=== PATIENT | male | born 1955 | race Caucasian/White ===

== ENCOUNTER 2022-03-18 11:06 | Outpatient (CLI) | payer MEDICARE, BC, SELFPAY ==
--- NOTE | 2022-03-18 09:30 | DI.RAD_ITS ---
Exam(s) XR SHOULDER RT COMPLETE 2+V EXAM: XR SHOULDER RT COMPLETE 2+V CLINICAL HISTORY: right shoulder pain. TECHNIQUE: 2D digital imaging was performed. Five views. COMPARISON: No exams were available for comparison FINDINGS: BONES: No acute fracture is present. No bony destructive lesion is seen. JOINTS: No dislocation present. Spurring at AC joint and inferior glenohumeral joint. Glenohumeral joint space is maintained. SOFT TISSUE: Normal. IMPRESSION: Mild to moderate degenerative changes of the AC joint and glenohumeral joint. DATA REPOSITORY: RADIATION DOSE DELIVERED:
== END 2022-03-18 11:07 | disposition home or self-care (01) ==
LOC: DIORS 11:07
PROVIDERS: Visit Provider Student in an Organized Health Care Education/Training Program
DX: M75.101 Unspecified rotator cuff tear or rupture of right shoulder, not specified as traumatic (principal)
CPT/HCPCS: 99203; 73030

== ENCOUNTER 2022-04-15 01:27 | Outpatient (CLI) | payer MEDICARE, BC, SELFPAY ==
--- NOTE | 2022-04-15 08:00 | DI.MRI_ITS ---
Exam(s) MR UPPER JOINT RT WO EXAM: MR UPPER JOINT RT WO CLINICAL HISTORY: R SHOULDER PAIN,RT ROTATOR CUFF TEAR,M75.101. TECHNIQUE: Multiplanar multisequence MRI was performed. COMPARISON: CR XR SHOULDER RT COMPLETE 2+V from 03/18/2022 FINDINGS: The examination is limited due to patient motion artifact. BONES: There is no fracture or contusion pattern. JOINTS: Moderate degenerative changes are seen at the acromioclavicular joint. There are degenerativ e changes seen at the glenohumeral joint. TENDONS: Supraspinatus: There is tendinosis of the supraspinatus tendon. No evidence of a tear. Infraspinatus: There is tendinosis of the infraspinatus tendon. No evidence of a tear. Subscapularis: There is tendinosis of the subscapularis tendon. There is some hyperintense signal se en at the inferior aspect of the tendon suspicious for partial tear. Teres Minor: Unremarkable. Biceps and [place]: Unremarkable. MUSCLES: There is mild fatty atrophy of the teres minor muscle. The muscles otherwise show normal si gnal and size. GLENOID LABRUM: Unremarkable on this noncontrast examination. SOFT TISSUES: Unremarkable. LIGAMENTS: Unremarkable. OTHER: Subacromial and subdeltoid bursae are unremarkable. IMPRESSION: 1. Subscapularis tendinosis. There is hyperintense signal seen in the inferior aspect of the tendon suspicious for partial tear. 2. Infraspinatus and supraspinatus tendinosis. 3. Mild fatty atrophy of the teres minor muscles. No evidence of a soft tissue mass. 4. Degenerative changes of the acromioclavicular and glenohumeral joints. DATA REPOSITORY:
== END 2022-04-15 01:47 ==
PROVIDERS: Visit Provider Student in an Organized Health Care Education/Training Program
DX: M75.101 Unspecified rotator cuff tear or rupture of right shoulder, not specified as traumatic (principal); M25.511 Pain in right shoulder; M75.81 Other shoulder lesions, right shoulder; M19.011 Primary osteoarthritis, right shoulder; M62.511 Muscle wasting and atrophy, not elsewhere classified, right shoulder
CPT/HCPCS: 73221

== ENCOUNTER → 2022-04-22 13:15 | Outpatient (BNVA) | payer MEDICARE, BC, SELFPAY | PROVIDERS: Visit Provider Student in an Organized Health Care Education/Training Program | DX: M19.011 Primary osteoarthritis, right shoulder (principal); M67.911 Unspecified disorder of synovium and tendon, right shoulder | CPT/HCPCS: 20610; 99213; J1030 ==

== ENCOUNTER 2023-08-04 13:10 | Outpatient (REF) | payer MEDICARE, BC, SELFPAY ==
[2023-08-04 14:20] LABS: Anion Gap 4.6 mmol/L (3-11); BUN 16 mg/dL (7-18); CO2 30.4 mmol/L (21.0-32.0); CREATININE 0.9 mg/dL (0.70-1.30); Calcium 9.2 mg/dL (8.5-10.1); Calculated LDL 130 mg/dL (<100); Chloride 104 mmol/L (98-107); Cholesterol 205 mg/dL (<200); Estimated GFR 92.45 (mL/min/1.73m2); Glucose 100 mg/dL (74-106); HDL Cholesterol 55 mg/dL (40-60); Potassium 4.5 mmol/L (3.5-5.1); Sodium 139 mmol/L (136-145); Triglyceride 104 mg/dL (<150)
== END 2023-08-04 13:11 | disposition home or self-care (01) ==
LOC: NCHCN 13:10
PROVIDERS: Visit Provider Family Medicine
DX: E78.5 Hyperlipidemia, unspecified (principal)
CPT/HCPCS: 80048; 80061